=== PATIENT | male | born 1975 | race Caucasian/White ===

== ENCOUNTER 2023-07-14 11:12 | Day surgery (SDC) | payer BC ==
[~2023-07-14 11:12] MED LIST: Midazolam 1 MG/ML 2 ML SDV ONE; Propofol 200 MG/20 ML SDV ONE
[2023-07-14] MEDS ORDERED: Lactated Ringers 1,000 ML IV SCH (11:15)
[2023-07-14] MEDS ORDERED: Sodium Chloride 0.9% 10 ML Syringe FLUSH PRN (11:15)
[2023-07-14] MEDS ORDERED: Midazolam 1 MG/ML 2 ML SDV ONE (12:14)
[2023-07-14] MEDS ORDERED: Lidocaine 2% 5 ML SDV ONE (12:17)
[2023-07-14] MEDS ORDERED: Glycopyrrolate 0.2 MG/ML SDV IVPUSH ONE (12:17)
== END 2023-07-14 13:46 | disposition home or self-care (01) ==
LOC: LL.SDS 11:12
PROVIDERS: ATTEND Surgery
DX: Z12.11 Encounter for screening for malignant neoplasm of colon (principal); K21.00 Gastro-esophageal reflux disease with esophagitis, without bleeding; K44.9 Diaphragmatic hernia without obstruction or gangrene; K27.9 Peptic ulcer, site unspecified, unspecified as acute or chronic, without hemorrhage or perforation; G47.33 Obstructive sleep apnea (adult) (pediatric); Z79.899 Other long term (current) drug therapy; Z88.8 Allergy status to other drugs, medicaments and biological substances; Z91.013 Allergy to seafood
CPT/HCPCS: 00813; J2250; J2704; J3490; J7120